=== PATIENT | female | born 1945 | race Caucasian/White ===

== ENCOUNTER 2025-01-19 06:59 | Emergency (ER) | payer OTHER ==
--- OUTSIDE RECORDS SUMMARY | 2025-01-19 07:03 | XMS REPORT | Continuity of Care Document ---
Author Name Unknown Address [address] [facility] [place] [address] Organization [facility] [place] Address [address] [facility] [place] [address] Care Team Providers Care Bank Operations Officer Name Role Phone Rosendo Melara Attending Clinician Unavailable Sussy Attending Clinician Unavaila ble [email or web address]_Kadiyala_S Attending Clinician Unavaila Rosendo Muir Admitting Clinician Unavailable Sussy Admitting Clinician Unavaila ble [email or web address]_Kadiyala_S Admitting Clinician Unavaila ble Payers Payer Name Policy Type Policy Number Effective Date Expirati on Date Source [employer] (MEDICARE REPLACEMENT PPO) [id number] 2023 00:00:00 Problems Condition Name Condition Details Condition Category Status Onset Date Resolution Date Last Treatment Date Treating Clinician Comments Source Osteoarthr itis of right hip joint Osteoarthr itis of Right Hip Joint Problem Active 416 00:00: 00 [facility] Hypothyroi dism Hypothyroi dism Problem Active 2022-10 00:00: 00 [facility] 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 Problem Active 2022-10 00:00: 00 [facility] 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 Problem Active 2022-10 00:00: 00 [facility] Osteopenia Osteopenia Problem Active 2022-10 00:00: 00 [facility] Urgent desire to urinate Urgent Desire to Urinate Problem Active 2022-10 00:00: 00 [facility] Atrophic vaginitis Atrophic Vaginitis Problem Active 06-25 00:00: 00 [facility] Senile osteoporos is Senile Osteoporos is Problem Active 2021-10 00:00: 00 [facility] Screening mammograph y Screening Mammograph y Problem Active 2020-10 00:00: 00 [facility] Bone density finding Bone Density Finding Problem Active 2017-10 00:00: 00 [facility] Polyp of corpus uteri Polyp of Corpus Uteri Problem Active 2016-10 00:00: 00 [facility] Pure hyperglyce ridemia Pure Hyperglyce ridemia Problem Active 2016-10 00:00: 00 [facility] Endometria l hyperplasi a Endometria l Hyperplasi a Problem Active 2016-10 00:00: 00 [facility] Genuine stress incontinen ce Genuine Stress Incontinen ce Problem Active 2016-10 00:00: 00 [facility] Lateral cystocele Lateral Cystocele Problem Active 2014-10 00:00: 00 [facility] Screening for malignant neoplasm of colon Screening for Malignant Neoplasm of Colon Problem Active 2014-10 00:00: 00 [facility] Gynecologi allyson examinatio n abnormal Gynecologi allyson Examinatio n Abnormal Problem Active 2014-10 00:00: 00 [facility] Allergies, Adverse Reactions, Alerts Allergy Name Allergy Type Status Severity Reaction(s) Onset Date Inactive Date Treating Clinician Comments Source gabapent in DA Active SV AGITATION 2023-10 00:00: 00 [facility] codeine DA Active SV NAUSEA 2023-10 00:00: 00 [facility] codeine DA Active SV NAUSEA 2023-10 0 00:00: 00 [facility] Codeine Allergy to substanc e Active [facility] CODEINE PHOSPHAT E Allergy to substanc e Active [facility] Social History Smoking Status Start Date Stop Date Source Never Smoker [facility] Medications Ordered Medication Name Filled Medication Name Start Date Stop Date Current Medication? Ordering Clinician Indication Dosage Frequency Signature (SIG) Comments Components Source estradiol 10 mcg vaginal tablet Insert 1 tablet twice a week by vaginal route for 90 days. estradiol 10 mcg vaginal tablet Insert 1 tablet twice a week by vaginal route for 90 days. No 1 Q3.5D estradiol 10 mcg vaginal tablet Insert 1 tablet twice a week by vaginal route for 90 days. [facility] levothyroxi ne levothyroxi ne No levothyrox ine [facility] trazodone 200 mg 1x/night trazodone 200 mg 1x/night No trazodone 200 mg 1x/night [facility] ciprofloxac in 250 mg tablet TAKE 1 TABLET BY MOUTH EVERY DAY FOR 5 DAYS ciprofloxac in 250 mg tablet TAKE 1 TABLET BY MOUTH EVERY DAY FOR 5 DAYS No ciprofloxa maritza 250 mg tablet TAKE 1 TABLET BY MOUTH EVERY DAY FOR 5 DAYS [facility] levothyroxi ne 25 mcg tablet 1 TABLET BY MOUTH DAILY, 30 MINUTES BEFORE BREAKFAST levothyroxi ne 25 mcg tablet 1 TABLET BY MOUTH DAILY, 30 MINUTES BEFORE BREAKFAST No levothyrox ine 25 mcg tablet 1 TABLET BY MOUTH DAILY, 30 MINUTES BEFORE BREAKFAST [facility] prednisone 10 mg tablet TAKE 1 TABLET 3 TIMES A DAY BY ORAL ROUTE WITH MEAL(S) FOR 10 DAYS. prednisone 10 mg tablet TAKE 1 TABLET 3 TIMES A DAY BY ORAL ROUTE WITH MEAL(S) FOR 10 DAYS. No 1 TID prednisone 10 mg tablet TAKE 1 TABLET 3 TIMES A DAY BY ORAL ROUTE WITH MEAL(S) FOR 10 DAYS. [facility] sodium fluoride 1.1 %-potassium nitrate 5 % dental paste BRUSH ON TEETH 3 TIMES DAILY sodium fluoride 1.1 %-potassium nitrate 5 % dental paste BRUSH ON TEETH 3 TIMES DAILY No sodium fluoride 1.1 %-potassiu m nitrate 5 % dental paste BRUSH ON TEETH 3 TIMES DAILY [facility] trazodone 100 mg tablet TAKE 2 TABLETS BY MOUTH EVERY DAY AT BEDTIME trazodone 100 mg tablet TAKE 2 TABLETS BY MOUTH EVERY DAY AT BEDTIME No trazodone 100 mg tablet TAKE 2 TABLETS BY MOUTH EVERY DAY AT BEDTIME [facility] Yuvafem 10 mcg vaginal tablet INSERT 1 TABLET VAGINALLY TWICE A WEEK Yuvafem 10 mcg vaginal tablet INSERT 1 TABLET VAGINALLY TWICE A WEEK No Yuvafem 10 mcg vaginal tablet INSERT 1 TABLET VAGINALLY TWICE A WEEK [facility] escitalopra m 5 mg tablet TAKE 1 TABLET BY MOUTH EVERY DAY WITH BREAKFAST escitalopra m 5 mg tablet TAKE 1 TABLET BY MOUTH EVERY DAY WITH BREAKFAST No escitalopr am 5 mg tablet TAKE 1 TABLET BY MOUTH EVERY DAY WITH BREAKFAST [facility] eszopiclone 2 mg tablet TAKE 1 TABLET BY MOUTH AT BEDTIME NEEDED FOR SLEEP (DIAGNOSIS: F51.01, INSOMNIA) eszopiclone 2 mg tablet TAKE 1 TABLET BY MOUTH AT BEDTIME NEEDED FOR SLEEP (DIAGNOSIS: F51.01, INSOMNIA) No eszopiclon e 2 mg tablet TAKE 1 TABLET BY MOUTH AT BEDTIME NEEDED FOR SLEEP (DIAGNOSIS : F51.01, INSOMNIA) [facility] aspirin 81 mg tablet,andie yed release TAKE 1 TABLET BY MOUTH TWICE A DAY aspirin 81 mg tablet,andie yed release TAKE 1 TABLET BY MOUTH TWICE A DAY No aspirin 81 mg tablet,del ayed release TAKE 1 TABLET BY MOUTH TWICE A DAY [facility] doxycycline hyclate 100 mg capsule Take 1 capsule twice a day by oral route for 7 days. doxycycline hyclate 100 mg capsule Take 1 capsule twice a day by oral route for 7 days. No doxycyclin e hyclate 100 mg capsule Take 1 capsule twice a day by oral route for 7 days. [facility] Hibiclens 4 % topical liquid Apply 1 application every day by topical route for 5 days. Start 5 day prior to surgery Hibiclens 4 % topical liquid Apply 1 application every day by topical route for 5 days. Start 5 day prior to surgery No 1applic ation(s ) Q1D Hibiclens 4 % topical liquid Apply 1 applicatio n every day by topical route for 5 days. Start 5 day prior to surgery [facility] mupirocin 2 % topical ointment APPLY A SMALL AMOUNT TO EACH NOSTRIL DAILY FOR 5 DAYS BEFORE SURGERY mupirocin 2 % topical ointment APPLY A SMALL AMOUNT TO EACH NOSTRIL DAILY FOR 5 DAYS BEFORE SURGERY No mupirocin 2 % topical ointment APPLY A SMALL AMOUNT TO EACH NOSTRIL DAILY FOR 5 DAYS BEFORE SURGERY [facility] tizanidine 4 mg tablet Take 1 tablet every 8 hours by oral route as needed for 14 days. tizanidine 4 mg tablet Take 1 tablet every 8 hours by oral route as needed for 14 days. No tizanidine 4 mg tablet Take 1 tablet every 8 hours by oral route as needed for 14 days. [facility] tramadol 50 mg tablet Take 1 tablet(s) EVERY 6 HOURS by oral route as needed for pain for 7 days tramadol 50 mg tablet Take 1 tablet(s) EVERY 6 HOURS by oral route as needed for pain for 7 days No tramadol 50 mg tablet Take 1 tablet(s) EVERY 6 HOURS by oral route as needed for pain for 7 days [facility] Immunizations Ordered Immunization Name Filled Immunization Name Date Status Comments Source influenza, seasonal, injectable influenza, seasonal, injectable Unknown Completed [facility] Vital Signs Vital Name Observation Time Observation Value Comments S ource BMI (Body Mass Index) 2024-10-22 00:00:00 25.9 kg/m2 [facility] Body Weight 2024-10-22 00:00:00 141.6 [lb_av] [facility] BP Diastolic 2024-10-22 00:00:00 63 mm[Hg] [facility] BP Systolic 2024-10-22 00:00:00 144 mm[Hg] [facility] Height 2024-10-22 00:00:00 62 [in_i] [facility] BMI (Body Mass Index) 2024-05-15 00:00:00 27.3 kg/m2 [facility] Body Weight 2024-05-15 00:00:00 149 [lb_av] [facility] Height 2024-05-15 00:00:00 62 [in_i] [facility] Height 2024-05-09 00:00:00 62 [in_i] [facility] Height 2024-04-22 00:00:00 62 [in_i] [facility] Height 2024-01-22 00:00:00 62 [in_i] [facility] Body Weight 2024-01-22 00:00:00 149 [lb_av] [facility] BMI (Body Mass Index) 2024-01-22 00:00:00 27.3 kg/m2 [facility] Procedures Procedure Date / Time Performed Performing Clinician Source MAMMO, screening, digital, bilateral 2024-10-22 00:00:00 [facility] - Other (Surg) 2024-08-19 00:00:00 [facility] Total Replacement of Hip 2024-08-08 00:00:00 [facility] electrocardiogram, routine ECG, 12 leads min 2024-05-15 00:00:00 [facility] RADEX PELVIS 1/2 VIEWS 2024-01-22 00:00:00 [facility] Hysteroscopy 2017-09-07 00:00:00 [facility] Hernia Repair [facility] Medical Encounters Start Date/Time End Date/Time Encounter Type Admission Type Attending Clinicians Care Facility Care Department Encounter ID Source 2024-10-22 00:00:00 2024-10-22 00:00:00 VANDANA Ray: [address] [place] [address] S, [facility] [address], [place] [address] , Ph. [facility] - [facility]GCBZW[facility]* [id number] [facility] 2024-09-01 00:00:00 2024-09-01 00:00:00 Rosendo Melara MD: [id number] [place] [address] , Ph. [phone] [place] [facility] [place] [id number] [facility] 2024-08-19 05:19:00 2024-08-20 12:24:00 Inpatient EM Rosendo Melara HCATO SURG [id number] 95 [facility] 2024-07-31 14:01:00 2024-07-31 14:01:00 Outpatient Rosendo Melara HCACL LABO [id number] 00 [facility] 2024-05-15 00:00:00 2024-05-15 00:00:00 Rosendo Melara MD: [address] [place] [address] , Ph. [phone] [facility] [place] [facility] [place] [id number] [facility] 2024-05-09 00:00:00 2024-05-09 00:00:00 Paramjit Clifton, TALENT DEVELOPMENT SPECIALIST: [address] [place] [address] , Ph. [phone] [facility] [place] [facility] [place] [id number] [facility] 2024-04-22 00:00:00 2024-04-22 00:00:00 Paramjit Clifton, TALENT DEVELOPMENT SPECIALIST: [address] [place] [address] , Ph. [phone] [facility] [place] [facility] [place] [id number] [facility] 2024-01-22 00:00:00 2024-01-22 00:00:00 Paramjit Clifton, TALENT DEVELOPMENT SPECIALIST: [address] [place] [address] , Ph. [phone] [facility] [place] [facility] [place] [id number] [facility] 2024-01-20 00:00:00 2024-01-20 00:00:00 Outpatient FOG_Burke_R Denisa [facility] AO [id number] [facility] 2024-01-15 00:00:00 2024-01-15 00:00:00 Outpatient FOG_Burke_R jenni_ [facility] AO [id number] [facility] 2023-09-05 00:00:00 2023-09-05 00:00:00 Outpatient GC_GCBZW_Ka leroya_S [facility] [id number] [facility] 2023-09-04 00:00:2023-09-04 00:00:00 Outpatient GC_GCBZW_Ka dicaridada_S [facility] [id number] [facility] 2023-06-25 00:00:00 2023-06-25 00:00:00 Outpatient GC_GCBZW_Ka diyala_S [facility] [id number] [facility] Results Test Description Test Time Test Comments Results Result Co mments Source [facility] [id number] 06:33:00* Test Item Value Reference Range Interpretation Comme nts SODIUM (test code = NA) 138 mmol/L 136-145 N POTASSIUM (test code = K) 4.6 mmol/L 3.5-5.1 N CHLORIDE (test code = CL) 99.0 mmol/L 98-107 N CARBON DIOXIDE (test code = CO2) 28.3 mmol/L 21-32 N GLUCOSE (test code = GLU) 112 mg/dL 74-106 H BLOOD UREA NITROGEN (test code = BUN) 21 mg/dL 7-18 H GLOMERULAR FILTRATION RATE (test code = GFR) 42.6 >60 L The Glomerular Filtration Rate is a calculated parameterbased on serum Creatinine, patient age and sex. GFR valuesless than 60 mL/min/1.73 square meters are indicative ofChronic Kidney Disease. Values less than 15 mL/min/1.73square meters indicate Kidney failure. The calculation forGFR is based on the CKD-EPI (2020) calculation. This formulais race indifferent and is the recommended formula for GFRby the National Kidney Foundation for Adults.The GFR will not calculate if the sex is unknown or if thepatient's age is <18 years. CREATININE (test code = CREAT) 1.28 mg/dL 0.55-1.02 H CALCIUM (test code = CA) 9.1 mg/dL 8.5-10.1 N HGB [id number] 05:49:00* Test Item Value Reference Range Interpretation Comme nts HEMOGLOBIN (test code = HGB) 11.7 g/dL 12-16 L HEMATOCRIT (test code = HCT) 35.2 % 37-47 L SPECIMEN COMMENT: POD #1Hemoglobin and Hematocrit panel - [id number] 03:15:00* Test Item Value Reference Range Interpretation Comme nts hemoglobin (test code = hemoglobin) 11.7 g/dL 12-16 L hematocrit (test code = hematocrit) 35.2 % 37-47 L performing lab: (test code = performing lab:) [facility] [id number] 12:54:00* Test Item Value Reference Range Interpretation Comme nts SODIUM (test code = NA) 142 mmol/L 136-145 N POTASSIUM (test code = K) 4.4 mmol/L 3.5-5.1 N CHLORIDE (test code = CL) 102.0 mmol/L 98-107 N CARBON DIOXIDE (test code = CO2) 32.4 mmol/L 21-32 H GLUCOSE (test code = GLU) 101 mg/dL 74-106 N BLOOD UREA NITROGEN (test code = BUN) 18 mg/dL 7-18 N GLOMERULAR FILTRATION RATE (test code = GFR) 45.1 >60 L The Glomerular Filtration Rate is a calculated parameterbased on serum Creatinine, patient age and sex. GFR valuesless than 60 mL/min/1.73 square meters are indicative ofChronic Kidney Disease. Values less than 15 mL/min/1.73square meters indicate Kidney failure. The calculation forGFR is based on the CKD-EPI (202) calculation. This formulais race indifferent and is the recommended formula for GFRby the National Kidney Foundation for Adults.The GFR will not calculate if the sex is unknown or if thepatient's age is <18 years. CREATININE (test code = CREAT) 1.22 mg/dL 0.55-1.02 H TOTAL PROTEIN (test code = PROT) 6.9 g/dL 6.4-8.2 N ALBUMIN (test code = ALB) 3.9 g/dL 3.4-5.0 N GLOBULIN (test code = GLOB) 3.0 g/dL 2.2-4.2 N ALBUMIN/GLOBULIN RATIO (test code = A/G) 1.3 0.7-2.0 N CALCIUM (test code = CA) 9.3 mg/dL 8.5-10.1 N BILIRUBIN TOTAL (test code = BILT) 0.50 mg/dL 0.2-1.00 N SGOT/AST (test code = AST) 22.0 U/L 15-37 N SGPT/ALT (test code = ALT) 19.0 U/L 14-59 N ALKALINE PHOSPHATASE TOTAL (test code = ALKP) 66 U/L 46-116 N CBC W/AUTO [id number] 12:29:00* Test Item Value Reference Range Interpretation Comme nts WHITE BLOOD CELL (test code = WBC) 8.0 K/mm3 5.5-11.0 N RED BLOOD CELL (test code = RBC) 4.45 M/mm3 4.2-5.4 N HEMOGLOBIN (test code = HGB) 13.4 g/dL 12-16 N HEMATOCRIT (test code = HCT) 39.7 % 37-47 N MEAN CELL VOLUME (test code = MCV) 89 fL 80-98 N MEAN CELL HGB (test code = MCH) 30.1 pg 27-34 N MEAN CELL HGB CONCENTRATION (test code = MCHC) 33.8 g/dL 30.8-34.1 N RED CELL DISTRIBUTION WIDTH (test code = RDW) 12.3 % 11-16 N PLT (test code = PLT) 286 K/mm3 130-400 N MEAN PLATELET VOLUME (test c ode = MPV) 10.9 fL 8.9-12.1 N NEUTROPHIL % (test code = NT%) 53.1 % 45-70 N LYMPHOCYTE % (test code = LY%) 37.0 % 20-40 N MONOCYTE % (test code = MO%) 6.8 % 3-10 N EOSINOPHIL % (test code = EO%) 2.5 % 1-5 N BASOPHIL % (test code = BA%) 0.5 % 0.0-1.1 N NEUTROPHIL # (test code = NT#) 4.25 K/mm3 2.00-7.50 N LYMPHOCYTE # (test code = LY#) 2.96 K/mm3 1.50-4.00 N MONOCYTE # (test code = MO#) 0.54 K/mm3 0.2-0.8 N EOSINOPHIL # (test code = EO#) 0.20 K/mm3 0.04-0.4 N BASOPHIL # (test code = BA#) 0.04 K/mm3 0.02-0.10 N MANUAL DIFF REQUIRED (test c ode = MDIFF) NO MANUAL DIFF NUCLEATED RED BLOOD CELL (te st code = NRBC) 0 % 0-0 N Notes Date/Time Note Provider Source 2024-08-20 09:01:00 [facility]) Clinical Note REPORT#:[id number] REPORT STATUS: Signed REPORT INITIALIZATION DATE:08/20/24 TIME: 900 PATIENT: LUCITA JOHN UNIT #: [id number] ROOM/BED: Y.O17-A : 45 AGE: 79 SEX: F ATTEND: Rosendo Melara MD ADM AUTHOR: Arie Hernandez MD REPT SERVICE DT/TIME: 08/20/24 0901 * ALL edits or amendments must be made on the electronic/computer document * Clinical Note Note: [facility] Arie Gómez M.D. (cell text [phone]) Assessment/Plan 1.) Anemia of acute blood loss- .Hgb 11.7, asymptomatic. 2.) S/p Right Total Hip Arthroplasty .acute multi-modal pain control and followup. Anticoagulation as per Dr. Melara 3.) OsteoArthritis Hypothyroid disease Chronic kidney disease Osteoporosis- .continue on Rx. * OK for DISCHARGE per Internal Medicine. Prior Events/Overnight: Uneventful. Chief Complaint: No significant complaints. Objective Vital Signs: Date Time Temp Pulse Resp B/P B/P Pulse O2 O2 Flow FiO2 Mean Ox Delivery Rate 08/20 07 98.2 75 17 131/68 88.7 97 Room air 08/20 0313 97.7 86 14 130/70 90.0 100 Room air 08/19 2144 97.0 90 14 146/70 95.5 100 Room air 08/19 1945 Nasal 3 cannula 08/19 1925 97.9 88 16 132/76 94.4 99 Room air 08/19 1118 95.7 82 15 129/74 92.3 100 08/19 1015 96.1 76 16 133/76 95.4 98 08/19 0950 Nasal 3 100 cannula 08/19 0945 83 14 130/81 97.0 98 08/19 0941 95.9 55 15 97 08/19 0915 98.4 79 16 141/65 100 Nasal 3 cannula Gen: Alert, oriented, in mild discomfort CV: Regular Rate Rhythm / Edema- no significant Resp: Clear To Ascultation / Normal Respiratory Effort ABD: NonTender / NonDistended MS/Skin: No sign of compartment syndrome / +ankle DF/PF Other: hip dressing clean,dry Labs/X-ray: Laboratory Tests: 08/20 315 Chemistry Sodium (136 - 145 mmol/L) 138 Potassium (3.5 - 5.1 mmol/L) 4.6 Chloride (98 - 107 mmol/L) 99.0 Carbon Dioxide (21 - 32 mmol/L) 28.3 BUN (7 - 18 mg/dL) 21 H Creatinine (0.55 - 1.02 mg/dL) 1.28 H Glomerular Filtr Rate (>60) 42.6 L Glucose (74 - 106 mg/dL) 112 H Calcium (8.5 - 10.1 mg/dL) 9.1 Hematology Hgb (12 - 16 g/dL) 11.7 L Hct (37 - 47 %) 35.2 L Arie Gómez M.D. at 1046 RPT #:[id number] END OF REPORT [facility] 2024-08-20 08:13:00 [facility] ([facility]) Discharge Summary REPORT#:[id number] REPORT STATUS: Signed REPORT INITIALIZATION DATE:08/20/24 TIME: 812 PATIENT: LUCITA JOHN UNIT #: [id number] ROOM/BED: [address] : 45 AGE: 79 SEX: F ATTEND: Rosendo Melara MD ADM AUTHOR: Paramjit Clifton APRN REPT SERVICE DT/TIME: 08/20/24812 * ALL edits or amendments must be made on the electronic/computer document * General Information Discharge date: 08/20/24 Discharge diagnosis: Right hip osteoarthritis Hospital course: Discharge Diagnosis: Right Hip Degenerative Disease Procedure: Right Hip Arthroplasty Hospital Course and Findings The patient underwent the procedure without incident. Findings were significant for degenerative disease of the hip. The patient was hemodynamically and medically monitored during the postoperative period. Anticoagulation was instituted for postoperative DVT prophylaxis. The patient was progressively able to tolerate PO pain medications and the appropriate diet. Physical therapy was instituted, with a progressive ability to ambulate and perform exercises. The patient was eventually deemed stable and safe for discharge. Despite factors which projected a longer hospital stay, the patient fulfilled criteria for earlier than expected discharge, including control of pain, early mobilization with therapy, and a stable hemodynamic status. At discharge, the patient was comfortable, with a controlled pain level. There were no chest or abdominal symptoms present. Discharge physical examination demonstrated stable vital signs and no acute distress. The patient had an intact wound with no significant drainage, and no calf tenderness and a negative Jessy s sign bilaterally. There were no neurologic or vascular deficits or changes from the preoperative state. Disposition: Discharged to home Discharge Condition: Stable Instructions: Instruction sheet given to patient Activity: Ambulate with assistance and walking aid, with weight-bearing as instructed in the hospital. Weight bearing limitations were reviewed with the patient during the hospitalization. Diet: As per preoperatively Prescriptions 1. Pain Medications: As per discharge prescription, with progressive weaning as pain decreases 2. Anticoagulation: As per discharge prescription, or PreOp anticoagulant, as discussed with patient Follow-up Appointment: Patient instructed to arrange appointment for an office visit in 2 weeks Med Rec Med Rec Discharge meds: Continue taking these medications: LEVOTHYROXINE (SYNTHROID) 25 MCG TAB 25 MICROGRAM ORAL DAILY. traZODone (DESYREL) 100 MG TAB 200 MILLIGRAM ORAL BEDTIME. ESTROGENS,CONJ (PREMARIN 0.625 MG/GM VAGINAL) 0.625 MG/GRAM CREAM 0.5 GRAM VAGINAL EVERY 7 DAYS. MULTIVITAMIN/MIN/IRON/FA/VIT K/LUTEIN (CENTRUM SILVER WOMEN'S) 8 MG IRON-400 MCG -50 MCG-300 MCG TAB 1 EACH ORAL DAILY. [TURMERIC] 1 CAPSULE ORAL TWICE DAILY. Instructions: WITH PEPPER CRANBERRY EXTRACT (CRANBERRY EXTRACT) 250 MG CAP 250 MILLIGRAM ORAL TWICE DAILY. ESZOPICLONE (ESZOPICLONE) 2 MG TAB 2 MILLIGRAM ORAL AT BEDTIME NEEDED. as needed for SLEEP Discharge Instructions PCP )( Discharge to: Home/Self Care Discharge Instructions Additional Discharge Routines: Attending Follow-Up, Wound/Dressing Care )( Diet: Resume Home Diet/Feeds, Regular )( Activity: Resume Normal Activity, As Tolerated, Do not Submerge Incision )( Wound/dressing care: Do not submerge incision, Leave dressing in place, OK to shower tomorrow Follow-up Appointments Attending Physician: Attending Physician: Rosendo Melara MD Attending physician follow up timeframe: In 2-3 weeks Special instructions: Remove gauze dressing in 72 hours. Ok to shower must cover with plastic wrap. Leave mesh dressing in place for 2 weeks at 0813 at 0631 [facility] #:[id number] END OF REPORT [facility] 2024-08-19 18:49:00 [facility] ([facility]) Clinical Note REPORT#:[id number] REPORT STATUS: Signed REPORT INITIALIZATION DATE:08/19/24 TIME: 1848 PATIENT: LUCITA JOHN UNIT #: [id number] ROOM/BED: [address] : 45 AGE: 79 SEX: F ATTEND: Rosendo Melara MD ADM AUTHOR: Arie Hernandez MD REPT SERVICE DT/TIME: 08/19/241848 * ALL edits or amendments must be made on the electronic/computer document * Clinical Note Note: [facility] Arie Gómez MD (cell text [phone]) Internal Medicine Consult at request of : Dr. Rosendo Melara Chief Complaint: right hip pain HPI: 79 yo F is now s/p Right Total Hip Arthroplasty by Dr. Melara. Ms. John relates years of progressive right hip pain (recently severe, 05/17), worse with activity, and with restricted motion at times in quality. She has failed conservative management. Comorbidities: see below. PmHx: . Osteoarthritis,depression, chronic kidney disease, osteoporosis and hypothyroid disease. ALLERGY: Allergies: codeine (Coded, Severe, NAUSEA, 08/19/24) gabapentin (Coded, Severe, AGITATION, 08/19/24) Home Medications: Home Medications: LEVOTHYROXINE (SYNTHROID) 25 MCG PO DAILY traZODone (DESYREL) 200 MG PO BEDTIME ESTROGENS,CONJ (PREMARIN 0.625 MG/GM VAGINAL) 0.5 GM VAGINAL Q7D MULTIVITAMIN/MIN/IRON/FA/VIT K/LUTEIN (CENTRUM SILVER WOMEN'S) 1 EACH PO DAILY [TURMERIC] 1 CAP PO BID CRANBERRY EXTRACT 250 MG PO BID ESZOPICLONE 2 MG PO BEDTIME PRN PRN SLEEP SgHx: . Hernia surgery, excision of cyst from back SHx: Tob: none FHx: .No significant hx of DVT/PE. Alcohol: None Drugs: none Lives: with spouse . . Vitals: Vital Signs: Date Time Temp Pulse Resp B/P B/P Pulse O2 O2 Flow FiO2 Mean Ox Delivery Rate 08/19 1118 95.7 82 15 129/74 92.3 100 / 1015 96.1 76 16 133/76 95.4 98 /12 0950 Nasal 3 100 cannula /12 0945 83 14 130/81 97.0 98 / 0941 95.9 55 15 97 / 0915 98.4 79 16 141/65 100 Nasal 3 cannula / 0900 98.0 77 15 135/67 100 Simple 6 mask / 0853 Nasal 3 cannula / 0845 82 15 134/89 100 Nasal 3 cannula / 0830 86 15 114/80 100 Nasal 3 cannula / 0815 85 15 125/71 100 Nasal 3 cannula / 0808 82 15 83/53 /12 0802 Simple 6 mask 11/ 0800 59 15 85/50 100 Simple 6 mask / 0757 98.8 60 15 95/52 100 Simple 6 mask /12 0600 97.6 78 18 168/82 97 Room air Gen: Alert, in mild discomfort. EYE: Nl lids conjunctiva. ENT: Nl ears Nose, nl lips,. Neck: Supple, nl thyroid, No masses. CV: Regular Rate Rhythm, no heave or significant murmur. Edema- none RESP: Clear to Auscultation, normal Respiratory effort. ABD: Soft, NonDistended,. LYM: No significant cervical Lymphadenopathy. MS: No sign of compartment syndrome, hip dressing is dry and intact. NEURO: Nonfocal, grossly normal sensation of LE, +Ankle DF/PF . . Preop Labs(07/31/24): CBC:. Hgb 13.4 Plt 286 , CHEM: Na 142, K 4.4, Cr 1.22(eGFR45 %), A1C% Ekg Normal sinus rhythm . (medium to high risk of complications or morbidity) (major surgery) (IV sedative, meds) . Assessment Plan 1.) Anemia of Acute Blood Loss- .will recheck tomorrow. 2.) S/p Right Total Hip Arthroplasty .acute multi-modal pain control and followup. Anticoagulation as per Dr. Melara 3.) OsteoArthritis Hypothyroid disease Chronic kidney disease Osteoporosis- .continue on Rx. . Arie Gómez M.D. Thanks! . . . . . G8417 BMI documented as above normal parameters and a f/u plan is documented G9903 - Patient screened for tobacco use AND identified as a tobacco non-user 1123F - ACP discussion - default code status while at [facility]. at 2204 RPT #:[id number] END OF REPORT [facility] 2024-08-19 07:45:00 [id number] [place] [address] PATIENT NAME: LUCITA JOHN ADMIT DATE: 08/19/24 ACCOUNT NO: [id number] [facility] AGE: 79 REPORT TYPE: OPERATIVE REPORT SEX: F ADMITTING PHYSICIAN:Rosendo Melara MD ATTENDING PHYSICIAN:Rosendo Melara MD OPERATION DATE: 08/19/2024 PREOPERATIVE DIAGNOSIS: Right hip osteoarthropathy. POSTOPERATIVE DIAGNOSIS: Right hip osteoarthropathy, M16.11. OPERATIVE PROCEDURES PERFORMED: 1. Computer-assisted imageless right total hip arthroplasty, . 2. IMPLANTS UTILIZED: DePuy total hip system, size 48 mm emphasis cup +4 neutral liner, size 3 ACTIS femoral stem, standard neck, 1.5 neck length, 36 mm ceramic head. Both the acetabular and femoral components were pressfit. ANESTHESIA: General. ESTIMATED BLOOD LOSS: Less than 20 mL. SURGEON: Rosendo Melara M.D. CARTON FORMING MACHINE TENDER: SHANE Iglesias/URMILA. OPERATIVE FINDINGS: As above. SURGICAL SPECIMENS SENT: None. CLINICAL INDICATIONS: Ms. John is a delightful 79-year-old female from [place], [place], who has been having severe and progressive pain involving her right hip for the past several years. The pain is currently affecting her daily activities. She is admitted for computer-assisted imageless right total hip arthroplasty. OPERATIVE NARRATIVE: 1. COMPUTER-ASSISTED IMAGELESS RIGHT TOTAL HIP ARTHROPLASTY, 93890. 2. 50320. DESCRIPTION OF PROCEDURE: Ms. John was brought to the operative suite, at which time she was placed in supine position on the OR table. Routine monitors were established. General anesthesia was delivered. After satisfactory induction of general anesthesia, the patient was placed in left lateral decubitus position per Mr. Iglesias. Pulses were checked to be patent x4. The right hip was circumferentially prepped and draped in usual sterile fashion PATIENT NAME: LUCITA JOHN per Mr. Iglesias. A standard anterolateral Currie approach was performed. Iliotibial band divided in line with the skin incision. Abductors were taken sharply off their insertion on the greater trochanter. Anterior capsulotomy was performed. Femoral head was dislocated anteriorly. Femoral neck was resected 15 mm proximal to the lesser trochanter as per preoperative templating. The labrum was excised circumferentially from the acetabulum. Circumferential acetabular retractors were placed. Sequential reaming was performed to a size 47 mm reamer. Two percutaneous pins were then placed in superior aspect of the iliac crest and the OrthAlign guide was placed and the hip was registered. Utilizing realtime computer guidance, a 48 mm emphasis cup was placed in 40 degrees of abduction, 15 degrees of anteversion. A +4 neutral polyethylene insert was then placed in the cup. Attention was then turned to proximal femur. Sequential broaching was performed to a size 3 broach. Utilizing the broach as a trial, 36 mm head and 1-1/2 neck was placed and the hip was again reduced. Clinically, yarsanism of leg length and offset was achieved. No impingement was noted. Intraoperative x-rays confirmed yarsanism of leg length and offset with appropriate orientation of the implant. The hip was dislocated, the broach was removed and the formal size 3 ACTIS femoral stem was press-fit. This was followed by application of a 36 mm head and 1-1/2 neck. The hip was once again reduced. Copious antibiotic lavage was performed. The abductors were meticulously repaired utilizing #5 Ethibond suture incorporating a transosseous suture technique. 400 mg of Zynrelef was then injected both anteriorly, posteriorly as well as superiorly. The iliotibial band was then closed in watertight fashion with [id number] #5 Ethibond suture. Skin closure was performed with interrupted 0 Vicryl, followed by 2-0 Vicryl, followed by Ethicon Prineo mesh as per Mr. Iglesias. Sterile dressing applied by Mr. Iglesias. The patient was then extubated, taken to recovery room awake and alert without any anesthetic or operative complications. At the end of the case, sponge and needle counts were correct x2. During the procedure, Mr. Iglesias was invaluable in positioning the patient along with preparation and draping of the extremity. He was also responsible providing surgical exposure throughout the procedure, which greatly expedited the performance of the procedure, in addition to protection of neurovascular structures. Finally, he was responsible for closure of the postoperative incisions and application of postoperative dressing. Utilizing the OrthAlign guidance system allows precise placement of the acetabular component, which is essential for both short-term and alf success of the prosthesis. Dictated By: Rosendo Melara MD Date Dictated: 08/19/2024 07:45:31 Date Transcribed: 08/19/2024 08:08:03 Seth/HARVEY Receipt ID: [id number] Authenticated by Rosendo Melara MD On 08/19/2024 10:50:07 AM at 1050 PATIENT NAME: LUCITA JOHN [facility] 2024-08-19 06:07:00 [facility] ([facility]) Brief Op Note REPORT#:[id number] REPORT STATUS: Signed REPORT INITIALIZATION DATE:08/19/24 TIME: 606 PATIENT: LUCITA JOHN UNIT #: [id number] ROOM/BED: : 45 AGE: 79 SEX: F ATTEND: Rosendo Melara MD ADM AUTHOR: Rosendo Melara MD REPT SERVICE DT/TIME: 08/19/24606 * ALL edits or amendments must be made on the electronic/computer document * Op/Inv Proc Note - Brief Pre-procedure diagnosis: Right hip osteoarthritis Post-procedure diagnosis: same as pre procedure dx Procedures performed: Right total hip arthroplasty Primary Surgeon: Dr Rosendo Melara Continuity Director(s): Paramjit Clifton DNP Findings: See full dictation Complications: none Estimated blood loss in ml's: 25 cc Specimens removed/altered: none at 0608 [facility] #:[id number] END OF REPORT [facility] 2024-08-13 08:30:00 [id number] [facility] [address] [place] [address] PATIENT NAME: LUCITA JOHN ADMIT DATE: 08/19/24 ACCOUNT NO: [id number] ROOM NO: Y.O17 AGE: 79 REPORT TYPE: HISTORY AND PHYSICAL SEX: F ADMITTING PHYSICIAN:Rosendo Melara MD ATTENDING PHYSICIAN:Rosedno Melara MD ADMISSION DATE: 08/19/2024 09:26:00 ADMITTING DIAGNOSIS: Right hip osteoarthritis, M16.11. HISTORY OF PRESENT ILLNESS: Ms. John is a 79-year-old female, who has been having severe and progressive pain in her right hip for the past several years. The pain has become quite disabling over the past 6 months. She is experiencing pain on a daily basis. The pain greatly affects her daily activities. Her pain has been refractory to nonoperative treatment. Due to her significant disability and lack of response to nonoperative intervention, she was admitted for computer-assisted imageless right total hip arthroplasty. PAST MEDICAL HISTORY: Arthritis, depression, renal disease, osteoporosis and thyroid disease. PAST SURGICAL HISTORY: Include a herniorrhaphy. FAMILY HISTORY: Arthritis, hypertension, coronary artery disease and diabetes. SOCIAL HISTORY: She does not smoke. She drinks occasionally. ALLERGIES: CODEINE. MEDICATIONS: Levothyroxine, trazodone. REVIEW OF SYSTEMS: Negative. PHYSICAL EXAMINATION: VITAL SIGNS: She is 5 feet 2 inches tall, 67.5 kg. EXTREMITIES: She has a 5 mm leg length inequality on the right. She has severe pain with rotation of the right hip. Her distal neurovascular status is intact. RADIOGRAPHIC EVALUATION: Reveals severe osteoarthritis of the right hip. ASSESSMENT: Right hip pain secondary to severe osteoarthritis. SURGICAL PLAN: Computer-assisted imageless right total hip arthroplasty. I have gone over at length with the patient the associated risks involved with this procedure. She understands that these include but are not limited to bleeding, infection, neurovascular damage, leg length inequality, loosening of the prosthesis requiring possible revision, dislocation of the prosthesis, painful scar, persistent limp, deep vein thrombus leading to pulmonary emboli PATIENT NAME: LUCITA JOHN along with complications secondary to anesthesia. Furthermore, she understands that there are no guarantees or warranties that she will be pain free as a result of the procedure. She accepts these risks and gives her informed consent to proceed. Dictated By: Rosendo Melara MD Date Dictated: 08/13/2024 08:30:17 Date Transcribed: 08/13/2024 08:46:01 TREY/ZAIDA/WILLIAMS Receipt ID: [id number] Authenticated by Rosendo Melara MD On 08/19/2024 10:49:53 AM at 1049 PATIENT NAME: LUCITA JOHN [facility]
--- NOTE | 2025-01-19 07:41 | RAD REPORT ---
EXAM: CT brain without contrast HISTORY: head injury COMPARISON: None TECHNIQUE: Multiple contiguous axial images were obtained and a CT of the brain without contrast. Sag ittal and coronal reformats were performed. One or more of the following dose reduction techniques were used: Automated exposure control, adjust ment of the mA and/or kV according to patient size, and/or iterative reconstruction. FINDINGS: No evidence of hydrocephalus, intracranial hemorrhage, or extra-axial fluid collection. The brain is normal in morphology. No evidence of midline shift or areas of brain edema. The calvarium is intact. The visualized paranasal sinuses and mastoid air cells are essentially clear . Right periorbital soft tissue swelling. IMPRESSION: No evidence of acute intracranial abnormality.
--- NOTE | 2025-01-19 07:54 | RAD REPORT ---
EXAMINATION: XR RIGHT ELBOW CLINICAL INDICATION: Female, 79 years old. Pain;Swelling RIGHT TECHNIQUE: Multiple views of the right elbow were obtained. COMPARISON: No prior exam. FINDINGS: Transverse fracture involves the distal humerus supracondylar location most notable along t he radial aspect. No dislocation seen. Small joint effusion.
--- NOTE | 2025-01-19 08:24 | ER ---
Nurse's Notes [facility] Name: Mary Lou Das Age: 79 yrs Sex: Female : 1945 Arrival Date: 01/19/2025 Time: 06:59 Bed 7 Private MD: Katelyn Scott C Diagnosis: Distal right humerus fracture, acute, closed;Unspecified injury of head, initial encounter Presentation: 01/19 07:25 Chief complaint: Patient states: fell around 0145 this morning , hit right elbow and iw right side of face , swelling and bruising to right eye. 07:25 Acuity: SEGUN 4 iw 07:27 Coronavirus screen: At this time, the client does not indicate any symptoms associated iw with coronavirus-19. Ebola Screen: No symptoms or risks identified at this time. Initial Sepsis Screen: Does the patient meet any 2 criteria? No. Patient's initial sepsis screen is negative. Does the patient have a suspected source of infection? No. Patient's initial sepsis screen is negative. Risk Assessment: Do you want to hurt yourself or someone else? Patient reports no desire to harm self or others. Onset of symptoms was January 19, 2025. 07:27 Method Of Arrival: Ambulatory iw Historical: - Allergies: 07:26 Codeine; iw - Infectious Disease History:: Denies. - Family history:: not pertinent. - Social history:: Smoking status: Patient denies any tobacco usage or history of. - Hospitalizations: : No recent hospitalization is reported. Screenin:08 [facility] ED Fall Risk Assessment (Adult) History of falling in the last 3 months, iw including since admission Yes- single mechanical fall (1 pt) Confusion or Disorientation No (0 pts) Intoxicated or Sedated No (0 pts) Impaired Gait No (0 pts) Mobility Assist Device Used No (0 pt) Altered Elimination No (0 pt) Score/Fall Risk Level 0 - 2 = Low Risk Oriented to surroundings, Maintained a safe environment. Abuse screen: Denies threats or abuse. Denies injuries from another. Nutritional screening: No deficits noted. Tuberculosis screening: No symptoms or risk factors identified. Assessment: 08:06 General: Appears in no apparent distress. comfortable. iw 08:07 Pain: Complains of pain in right elbow. Neuro: Level of Consciousness is awake, alert, iw obeys commands, Oriented to person, place, time, situation, Moves all extremities. Cardiovascular: Patient's skin is warm and dry. Respiratory: Respiratory effort is even, unlabored, Respiratory pattern is regular, symmetrical. GI: Abdomen is non-distended. Derm: Skin is intact, is fragile, is thin, Bruising that is on right eye and right elbow. Musculoskeletal: Range of motion: Swelling present in right elbow. Injury Description: Bruise sustained to right elbow. Vital Signs: 07:13 BP 157 / 94; Pulse 107; Resp 17; Temp 98.2; Pulse Ox 100% on R/A; Weight 62.6 kg; ll1 Height 5 ft. 2 in. ; 08:09 BP 116 / 83; Pulse 89; Resp 16; Pulse Ox 97% on R/A; iw 07:13 Body Mass Index 25.24 (62.60 kg, 157.48 cm) ll1 ED Course: 07:02 Patient arrived in ED. as 07:04 Katelyn Scott MD is Private Physician. as 07:05 Gato Meraz MD is Attending Physician. rn 07:25 Kelly Ball RN is Primary Nurse. iw 07:26 Triage completed. iw 07:27 CT Head Brain wo Cont In Process Unspecified. EDMS 07:48 XRAY Elbow RIGHT 3 view In Process Unspecified. EDMS 08:09 Patient has correct armband on for positive identification. Provided Education on: wait iw time . 08:09 Patient did not have IV access during this emergency room visit. iw 08:22 Michel Sosa MD is Referral Physician. rn Administered Medications: No medications were administered Outcome: 08:23 Discharge ordered by . rn 09:07 Patient left the ED. ll1 Signatures: Dispatcher [employer] Carole Norton as Kelly Ball, RN RN iw Gato Meraz MD MD rn Lewis, Lynsay, RN RN ll1
--- NOTE | 2025-01-19 08:24 | EDPHYS ---
Physician Documentation [facility] Name: Mary Lou Das Age: 79 yrs Sex: Female : 1945 Arrival Date: 01/19/2025 Time: 06:59 Bed 7 Private MD: Katelyn Scott C ED Physician Gato Meraz HPI: 01/19 07:18 This 79 yrs old Female presents to ER via Unassigned with complaints of Fall Injury. rn 07:18 Details of fall: The patient fell from an upright position. Onset: The symptoms/episode rn began/occurred just prior to arrival. Associated injuries: The patient sustained injury to the head. Severity of symptoms: At their worst the symptoms were mild, in the emergency department the symptoms are unchanged. The patient has experienced similar episodes in the past. Patient reports fall, felt unbalanced in the dark, fell to right side and struck right forehead and right elbow on ground. No LOC. No blood thinners. Reports recurrent falls since her right hip surgery. No syncope. No chest pain or shortness of breath. Remembers all events. No changes in vision. Reports icing her face since injury. Reports moderate swelling around right eye. Historical: - Allergies: 07:26 Codeine; iw - Infectious Disease History:: Denies. - Family history:: not pertinent. - Social history:: Smoking status: Patient denies any tobacco usage or history of. - Hospitalizations: : No recent hospitalization is reported. ROS: 07:18 Constitutional: Negative for fever, chills, and weight loss, Eyes: Positive for right rn periorbital swelling and injury Neck: Negative for injury, pain, and swelling, Cardiovascular: Negative for chest pain, palpitations, and edema, Respiratory: Negative for shortness of breath, cough, wheezing, and pleuritic chest pain, Abdomen/GI: Negative for abdominal pain, nausea, vomiting, diarrhea, and constipation, Back: Negative for injury and pain, : Negative for injury, bleeding, discharge, and swelling, MS/Extremity: Positive for swelling to right elbow Skin: Negative for injury, rash, and discoloration, Neuro: Positive for mild headache Exam: 07:18 Constitutional: This is a well developed, well nourished patient who is awake, alert, rn and in no acute distress. Head/Face: Right periorbital swelling with mild tenderness of right superior orbital ridge. No laceration Eyes: No evidence of entrapment Neck: No midline cervical tenderness Cardiovascular: Tachycardic, regular. No pulse deficits. Respiratory: Speaking full sentences, unlabored. No increased work of breathing, no retractions or nasal flaring. Back: No spinal tenderness MS/ Extremity: Pulses equal, no cyanosis. Neurovascular intact. Full, normal range of motion. Mild swelling right lateral elbow. No bony tenderness. Neuro: Awake and alert, GCS 15 Vital Signs: 07:13 BP 157 / 94; Pulse 107; Resp 17; Temp 98.2; Pulse Ox 100% on R/A; Weight 62.6 kg; ll1 Height 5 ft. 2 in. ; 08:09 BP 116 / 83; Pulse 89; Resp 16; Pulse Ox 97% on R/A; iw 07:13 Body Mass Index 25.24 (62.60 kg, 157.48 cm) ll1 MDM: 07:05 Medical Screening Exam initiated rn 08:17 Differential diagnosis: closed head injury, contusion, fracture, sprain, strain. Data rn reviewed: vital signs, nurses notes. 08:20 Counseling: I had a detailed discussion with the patient and/or guardian regarding the rn historical points, exam findings, and any diagnostic results supporting the discharge/admit diagnosis, radiology results, the need for outpatient follow up, to return to the emergency department if symptoms worsen or persist or if there are any questions or concerns that arise at home. Response to treatment: the patient's symptoms have mildly improved after treatment. Special discussion: I discussed with the patient/guardian in detail that at this point there is no indication for admission to the hospital. It is understood, however, that if the symptoms persist or worsen the patient needs to return immediately for re-evaluation. Based on the history and exam findings, there is no indication for further emergent testing or inpatient evaluation. I discussed with the patient/guardian the need to see the orthopedic surgeon for further evaluation of the symptoms. ED course: CT head without acute findings. X-ray right elbow shows supracondylar fracture per my interpretation. Patient splinted and already sees Dr. Sosa. Will have her follow-up with Dr. Sosa for further recommendations. Spoke with her regarding importance of range of motion exercises regarding wrist and shoulder to prevent frozen shoulder.. 01/19 07:11 Order name: CT Head Brain wo Cont; Complete Time: 07:41 rn 01/19 07:11 Order name: XRAY Elbow RIGHT 3 view; Complete Time: 08:13 rn 01/19 08:17 Order name: Splint - Elbow; Complete Time: 09:07 rn 01/19 08:17 Order name: Sling; Complete Time: 09:07 rn Administered Medications: No medications were administered Disposition Summary: 01/19/25 08:23 Discharge Ordered Notes: Location: Home rn Problem: new rn Symptoms: have improved rn Condition: Stable rn Diagnosis - Distal right humerus fracture, acute, closed rn - Unspecified injury of head, initial encounter rn Followup: rn - With: Michel Sosa MD - When: 7 - 10 days - Reason: Recheck today's complaints, Continuance of care, Re-evaluation by your physician Discharge Instructions: - Discharge Summary Sheet rn - Cast or Splint Care, Adult rn - Head Injury, Adult rn - Humerus Fracture Treated With Immobilization rn - How to Use a Sling rn Forms: - Medication Reconciliation Form rn - Antibiotic barn and property manager - Prescription Opioid Use rn - Patient Portal Instructions rn - Leadership Thank You Letter rn Signatures: Dispatcher [employer] Kelly Gallardo RN RN Gato Owusu MD MD auditor internal: (The following items were deleted from the chart) 07:11 07:11 Elbow Right 3 View+RAD.RAD.BRZ ordered. AMELIA CISNEROS
[2025-01-19 09:34] VITALS: TEMP 98.2
[2025-01-19 09:39] VITALS: BP 116/83; O2SAT 97
== END 2025-01-19 09:07 | disposition home or self-care (01) ==
LOC: ER 06:59
PROC: 2W3AX1Z Immobilization of Right Upper Arm using Splint (ICD-10-PCS; principal; 2025-01-19)
DX: S42.401A Unspecified fracture of lower end of right humerus, initial encounter for closed fracture (principal); S09.90XA Unspecified injury of head, initial encounter; W18.30XA Fall on same level, unspecified, initial encounter
CPT/HCPCS: 70450; 99281